=== PATIENT | male | born 1945 | race Caucasian/White ===

== ENCOUNTER → 2020-10-26 | Outpatient (CLI) | payer OTHER ==
[~2020-10-26] MED LIST: ATORVASTATIN CA20 MG PO; CYCL10 PO; DONEPEZIL HCL10 M1 PO; DONEPEZIL HCL10 MG PO; FAMO10; FUROSEMIDE20 MG PO; HYDROCODONE-AC1 EA11 PO; KLONOPIN0.5 M1 PO; LIDO700A20 TOP; ONDANSETRON ODT 4 MG; PREG25 PO; SIME80CH PO; Venlafaxine HCl75 MG PO; XARELTO20 M1 PO
[2020-10-26 14:49] LABS: BASOPHILS ABSOLUTE AUTO 0.02 K/mm3 (0.00-0.23); BASOPHILS PERCENT AUTO 0 % (0-2); EOSINOPHILS ABSOLUTE AUTO 0.14 K/mm3 (0.00-0.68); EOSINOPHILS PERCENT AUTO 2 % (0-6); Hematocrit 40.9 % (37.0-53.0); Hemoglobin 14.4 g/dL (13.5-17.5); IMMATURE GRAN ABSOLUTE AUTO 0.04 K/mm3 (0.00-0.10); IMMATURE GRAN PERCENT AUTO 1 % (0-1); LYMPHOCYTES ABSOLUTE AUTO 1.12 K/mm3 (0.84-5.20); LYMPHOCYTES PERCENT AUTO 17 % (21-46); MONOCYTES PERCENT AUTO 9 % (4-13); Mean Corpuscular HGB 30.6 pg (26.0-34.0); Mean Corpuscular HGB Conc 35.2 g/dL (31.5-36.5); Mean Corpuscular Volume 87 fL (80-100); Mean Platelet Volume 9.7 fL (9.1-12.4); NEUTROPHILS ABSOLUTE AUTO 4.72 K/mm3 (1.96-9.15); NEUTROPHILS PERCENT AUTO 71 % (41-73); Platelet Count 153 K/mm3 (150-400); RDW Coefficient Variation 13.2 % (11.7-14.2); White Blood Cell Count 6.64 K/mm3 (4.00-11.30)
[2020-10-26 15:09] LABS: Alanine Aminotransfer (ALT/SGP 24 U/L (12-78); Albumin, Blood 4.1 g/dL (3.4-5.0); Albumin/Globulin Ratio 1.4 (0.8-1.8); Alk Phos 319 U/L (40-126); Anion Gap 10 mmol/L (6-16); Aspartate Aminotrans (AST/SGOT 21 U/L (12-37); Blood Urea Nitrogen 14 mg/dL (8-24); Bun/Creatinine Ratio 15.9 (12.0-20.0); CO2, Blood 26 mmol/L (21-32); Calcium, Blood 9.2 mg/dL (8.5-10.1); Chloride, Blood 101 mmol/L (98-108); Creatinine, Blood 0.88 mg/dL (0.60-1.20); Glomerular Filtration Rate >60 (60-); Glucose, Blood 93 mg/dL (70-99); Potassium, Blood 3.9 mmol/L (3.5-5.5); Sodium, Blood 137 mmol/L (136-145); Total Protein, Blood 7.1 g/dL (6.4-8.2)
[2020-10-26 15:59] LABS: Bilirubin, Direct 0.1 mg/dL (0.0-0.3)
== END | disposition home or self-care (01) ==
LOC: LAB SHORT 14:45 → LAB EV 14:45
PROVIDERS: Physician Assistant Medical
DX: R11.2 Nausea with vomiting, unspecified (principal); R53.83 Other fatigue; R10.9 Unspecified abdominal pain; R74.8 Abnormal levels of other serum enzymes
CPT/HCPCS: 80053; 82248; 82977; 83690; 84443; 85025

== ENCOUNTER 2020-11-08 12:16 | Emergency (ER) | payer OTHER ==
[~2020-11-08] VITALS: Ht 175.3 cm; Wt 74.8 kg
[2020-11-08 13:02] LABS: BASOPHILS ABSOLUTE AUTO 0.06 K/mm3 (0.00-0.23); BASOPHILS PERCENT AUTO 1 % (0-2); EOSINOPHILS ABSOLUTE AUTO 0.03 K/mm3 (0.00-0.68); EOSINOPHILS PERCENT AUTO 0 % (0-6); Hematocrit 49.2 % (37.0-53.0); Hemoglobin 17.4 g/dL (13.5-17.5); IMMATURE GRAN ABSOLUTE AUTO 0.15 K/mm3 (0.00-0.10); IMMATURE GRAN PERCENT AUTO 2 % (0-1); LYMPHOCYTES ABSOLUTE AUTO 1.67 K/mm3 (0.84-5.20); LYMPHOCYTES PERCENT AUTO 21 % (21-46); MONOCYTES ABSOLUTE AUTO 0.76 K/mm3 (0.16-1.47); MONOCYTES PERCENT AUTO 10 % (4-13); Mean Corpuscular HGB 30.2 pg (26.0-34.0); Mean Corpuscular HGB Conc 35.4 g/dL (31.5-36.5); Mean Corpuscular Volume 85 fL (80-100); Mean Platelet Volume 9.5 fL (9.1-12.4); NEUTROPHILS ABSOLUTE AUTO 5.23 K/mm3 (1.96-9.15); NEUTROPHILS PERCENT AUTO 66 % (41-73); Platelet Count 157 K/mm3 (150-400); RDW Coefficient Variation 13.8 % (11.7-14.2); RDW Standard Deviation 41.9 fL (35.1-46.3); Red Blood Cell Count 5.77 M/mm3 (4.30-5.90)
[2020-11-08 13:17] LABS: International Normalized Ratio 1.14; Prothrombin Time Results 12.1 Sec (9.7-11.5)
[2020-11-08 13:18] LABS: Alanine Aminotransfer (ALT/SGP 23 U/L (12-78); Albumin, Blood 4.3 g/dL (3.4-5.0); Albumin/Globulin Ratio 1.1 (0.8-1.8); Alk Phos 518 U/L (50-136); Anion Gap 11 mmol/L (6-16); Aspartate Aminotrans (AST/SGOT 20 U/L (12-37); Bilirubin, Total 2.5 mg/dL (0.1-1.0); Blood Urea Nitrogen 10 mg/dL (8-24); CO2, Blood 24 mmol/L (21-32); Calcium, Blood 9.8 mg/dL (8.5-10.1); Chloride, Blood 105 mmol/L (98-108); Creatinine, Blood 0.72 mg/dL (0.60-1.20); Globulin, Blood 3.8 g/dL (2.2-4.0); Glomerular Filtration Rate >60 (60-); Glucose, Blood 106 mg/dL (70-99); Potassium, Blood 3.5 mmol/L (3.5-5.5); Sodium, Blood 140 mmol/L (136-145); Total Protein, Blood 8.1 g/dL (6.4-8.2)
[2020-11-08] MEDS ORDERED: DONEPEZIL HCL10 M1 PO (16:42)
[2020-11-08] MEDS ORDERED: ATORVASTATIN CA20 MG PO (16:42)
[2020-11-08] MEDS ORDERED: FAMO10 (16:43)
[2020-11-08] MEDS ORDERED: Venlafaxine HCl75 MG PO (16:43)
[2020-11-08] MEDS ORDERED: ONDANSETRON ODT 4 MG (16:43)
[2020-11-08] MEDS ORDERED: KLONOPIN0.5 M1 PO (16:43)
[2020-11-08] MEDS ORDERED: XARELTO20 M1 PO (16:43)
[2020-11-08] MEDS ORDERED: HYDROCODONE-AC1 EA11 PO (16:43)
[2020-11-08] MEDS ORDERED: FUROSEMIDE20 MG PO (16:43)
[2020-11-08] MEDS ORDERED: LIDO700A20 TOP (19:16)
== END 2020-11-08 19:38 | disposition home or self-care (01) ==
LOC: ER 12:16
PROVIDERS: Physician Assistant
DX: S70.01XA Contusion of right hip, initial encounter (principal); Z79.01 Long term (current) use of anticoagulants; Z79.899 Other long term (current) drug therapy; X58.XXXA Exposure to other specified factors, initial encounter
CPT/HCPCS: 36415; 73502; 74022; 80053; 84484; 85025; 85610; 85730; 93005; 93010; 96374; 96375; 96376; 99284-25; J2270; J2405

== ENCOUNTER 2020-11-22 12:05 | Emergency (ER) | payer OTHER ==
[~2020-11-22] VITALS: Ht 180.3 cm; Wt 104.3 kg
[~2020-11-22 12:05] MED LIST changes: -CYCL10 PO; -DONEPEZIL HCL10 MG PO; -PREG25 PO; -SIME80CH PO
[2020-11-22] MEDS ORDERED: CYCL10 PO (16:26)
== END 2020-11-22 16:33 | disposition home or self-care (01) ==
LOC: ER 12:05
DX: M25.551 Pain in right hip (principal); Z86.718 Personal history of other venous thrombosis and embolism
CPT/HCPCS: 73502; 99283-25; A9270

== ENCOUNTER → 2020-12-13 | Outpatient (CLI) | payer OTHER ==
[~2020-12-13] MED LIST changes: +CYCL10 PO; +DONEPEZIL HCL10 MG PO; +PREG25 PO; +SIME80CH PO
[2020-12-13 12:30] LABS: BASOPHILS ABSOLUTE AUTO 0.04 K/mm3 (0.00-0.23); BASOPHILS PERCENT AUTO 1 % (0-2); EOSINOPHILS ABSOLUTE AUTO 0.12 K/mm3 (0.00-0.68); EOSINOPHILS PERCENT AUTO 2 % (0-6); Hematocrit 38.3 % (37.0-53.0); Hemoglobin 13.2 g/dL (13.5-17.5); IMMATURE GRAN ABSOLUTE AUTO 0.19 K/mm3 (0.00-0.10); IMMATURE GRAN PERCENT AUTO 3 % (0-1); LYMPHOCYTES ABSOLUTE AUTO 1.25 K/mm3 (0.84-5.20); LYMPHOCYTES PERCENT AUTO 18 % (21-46); MONOCYTES ABSOLUTE AUTO 0.73 K/mm3 (0.16-1.47); MONOCYTES PERCENT AUTO 11 % (4-13); Mean Corpuscular HGB 29.3 pg (26.0-34.0); Mean Corpuscular HGB Conc 34.5 g/dL (31.5-36.5); Mean Corpuscular Volume 85 fL (80-100); NEUTROPHILS ABSOLUTE AUTO 4.65 K/mm3 (1.96-9.15); NEUTROPHILS PERCENT AUTO 67 % (41-73); RDW Coefficient Variation 14.1 % (11.7-14.2); RDW Standard Deviation 43.8 fL (35.1-46.3); White Blood Cell Count 6.98 K/mm3 (4.00-11.30)
[2020-12-13 12:35] LABS: Mean Platelet Volume 10.4 fL (9.1-12.4); Platelet Count 128 K/mm3 (150-400)
[2020-12-13 12:36] LABS: Albumin, Blood 3.7 g/dL (3.4-5.0); Albumin/Globulin Ratio 1.1 (0.8-1.8); Bilirubin, Total 1.1 mg/dL (0.1-1.0); Calcium, Blood 8.7 mg/dL (8.5-10.1); Creatinine, Blood 1.26 mg/dL (0.60-1.20); Globulin, Blood 3.3 g/dL (2.2-4.0); Potassium, Blood 4.2 mmol/L (3.5-5.5)
== END | disposition home or self-care (01) ==
LOC: LAB EV 12:23 → LAB SHORT 12:23
PROVIDERS: Physician Assistant
DX: F03.90 Unspecified dementia, unspecified severity, without behavioral disturbance, psychotic disturbance, mood disturbance, and anxiety (principal)
CPT/HCPCS: 80053; 85025

== ENCOUNTER 2020-12-20 12:38 | Emergency (ER) | payer OTHER ==
[~2020-12-20] VITALS: Ht 180.3 cm; Wt 98.0 kg
[~2020-12-20 12:38] MED LIST changes: -DONEPEZIL HCL10 MG PO; -PREG25 PO; -SIME80CH PO
[2020-12-20] MEDS ORDERED: SIME80CH PO (12:57)
[2020-12-20] MEDS ORDERED: PREG25 PO (12:58)
[2020-12-20] MEDS ORDERED: DONEPEZIL HCL10 MG PO (12:59)
[2020-12-20 13:30] LABS: Hematocrit 33.9 % (37.0-53.0); Hemoglobin 11.7 g/dL (13.5-17.5); Mean Corpuscular HGB 29.7 pg (26.0-34.0); Mean Corpuscular HGB Conc 34.5 g/dL (31.5-36.5); Mean Corpuscular Volume 86 fL (80-100); Mean Platelet Volume 10.3 fL (9.1-12.4); Platelet Count 96 K/mm3 (150-400); RDW Standard Deviation 43.8 fL (35.1-46.3); Red Blood Cell Count 3.94 M/mm3 (4.30-5.90); White Blood Cell Count 8.34 K/mm3 (4.00-11.30)
[2020-12-20 13:52] LABS: Alanine Aminotransfer (ALT/SGP 18 U/L (12-78); Albumin, Blood 2.9 g/dL (3.4-5.0); Albumin/Globulin Ratio 0.8 (0.8-1.8); Alk Phos 676 U/L (50-136); Anion Gap 4 mmol/L (6-16); Aspartate Aminotrans (AST/SGOT 47 U/L (12-37); Bilirubin, Total 0.8 mg/dL (0.1-1.0); Blood Urea Nitrogen 20 mg/dL (8-24); Bun/Creatinine Ratio 22.4 (12.0-20.0); CO2, Blood 23 mmol/L (21-32); Calcium, Blood 8.2 mg/dL (8.5-10.1); Chloride, Blood 107 mmol/L (98-108); Creatinine, Blood 0.89 mg/dL (0.60-1.20); Globulin, Blood 3.5 g/dL (2.2-4.0); Glomerular Filtration Rate >60 (60-); Glucose, Blood 110 mg/dL (70-99); Potassium, Blood 4.1 mmol/L (3.5-5.5); Sodium, Blood 134 mmol/L (136-145); Total Protein, Blood 6.4 g/dL (6.4-8.2); Troponin I 0.017 ng/mL (0.000-0.040)
[2020-12-20 13:58] LABS: BAND PERCENT MAN 3 % (0-8); BASOPHILS PERCENT MAN 0 % (0-2); EOSINOPHILS PERCENT MAN 0 % (0-6); LYMPHOCYTES PERCENT MAN 18 % (21-46); METAMYELOCYTE ABSOLUTE MAN 0.08 K/mm3 (0.00-0.00); METAMYELOCYTE PERCENT MAN 1 % (0-0); MONOCYTES ABSOLUTE MAN 0.75 K/mm3 (0.16-1.47); MONOCYTES PERCENT MAN 9 % (4-13); SEG NEUTROPHILS PERCENT MAN 69 % (41-73); TOTAL CELLS COUNTED 100
[2020-12-20 14:12] LABS: Source, Urine Voided
[2020-12-20 14:16] LABS: Appearance, Urine Clear (Clear); Bilirubin, Urine Neg (Neg); Blood, Urine 1+ (Neg); Color, Urine Yellow (P-Yellow); Glucose Qualitative, Urine Neg (Neg); Ketones, Urine Neg (Neg); Leukocyte Esterase, Urine 1+ (Neg); Nitrite, Urine Neg (Neg); Protein, Urine 1+ (Neg); Specific Gravity, Urine 1.015 (1.003-1.022); Urobilinogen, Urine NORM (Normal)
[2020-12-20 14:29] LABS: Bacteria Rare /hpf; Red Blood Cells, Urine 0-2 /hpf (0-2); Squamous Epithelial Cells Rare /hpf (Few); White Blood Cells, Urine 0-2 /hpf (0-5)
== END 2020-12-20 15:30 | disposition home or self-care (01) ==
LOC: ER 12:38
PROVIDERS: Emergency Medicine
DX: R53.1 Weakness (principal); I10 Essential (primary) hypertension; E78.5 Hyperlipidemia, unspecified; Z79.01 Long term (current) use of anticoagulants; Z79.899 Other long term (current) drug therapy
CPT/HCPCS: 36415; 70450; 80053; 81001; 84443; 84484; 85025; 87086; 93005; 93010; 99284-25; A9270

== ENCOUNTER 2020-12-28 20:34 | Observation (INO) | payer OTHER ==
[~2020-12-28] VITALS: Ht 182.9 cm; Wt 90.7 kg
[~2020-12-28 20:34] MED LIST changes: +DONEPEZIL HCL10 MG PO; +PREG25 PO; +SIME80CH PO
[2020-12-28 20:53] LABS: Base Excess Venous -11.5 mmol/L; Bicarbonate Venous 16.3 mmol/L (24.0-30.0); PCO2 Venous 26.1 mmHg (38-42); PO2 Venous 49.2 mmHg (38-42); pH Blood Venous 7.34 (7.34-7.37)
[2020-12-28 20:55] LABS: BASOPHILS ABSOLUTE AUTO 0.05 K/mm3 (0.00-0.23); BASOPHILS PERCENT AUTO 1 % (0-2); Hemoglobin 11.2 g/dL (13.5-17.5); LYMPHOCYTES ABSOLUTE AUTO 1.84 K/mm3 (0.84-5.20); LYMPHOCYTES PERCENT AUTO 22 % (21-46); MONOCYTES ABSOLUTE AUTO 0.36 K/mm3 (0.16-1.47); MONOCYTES PERCENT AUTO 4 % (4-13); Mean Corpuscular HGB 29.5 pg (26.0-34.0); Mean Corpuscular HGB Conc 33.9 g/dL (31.5-36.5); Mean Corpuscular Volume 87 fL (80-100); Mean Platelet Volume 10.3 fL (9.1-12.4); NRBC ABSOLUTE 0.24 K/mm3 (0.00-0.02); NRBC Auto 2.9 /100 WBC (0.0-0.2); Platelet Count 122 K/mm3 (150-400); RDW Coefficient Variation 14.7 % (11.7-14.2); RDW Standard Deviation 45.9 fL (35.1-46.3); White Blood Cell Count 8.37 K/mm3 (4.00-11.30)
[2020-12-28 20:55] LABS: Chloride (POC) 105 mmol/L (98-108); Glucose (ISTAT POC) 220 mg/dL (70-99); Hemoglobin (POC) 10.9 g/dL (13.5-17.5); Potassium (POC) 3.8 mmol/L (3.5-5.5); Sodium (POC) 136 mmol/L (135-148); Total CO2 (POC) 14 mmol/L (21-32)
[2020-12-28 20:56] LABS: EOSINOPHILS ABSOLUTE AUTO 0.05 K/mm3 (0.00-0.68); EOSINOPHILS PERCENT AUTO 1 % (0-6); IMMATURE GRAN ABSOLUTE AUTO 0.13 K/mm3 (0.00-0.10); IMMATURE GRAN PERCENT AUTO 2 % (0-1); NEUTROPHILS ABSOLUTE AUTO 5.94 K/mm3 (1.96-9.15); NEUTROPHILS PERCENT AUTO 71 % (41-73)
[2020-12-28 21:10] LABS: Alanine Aminotransfer (ALT/SGP 17 U/L (12-78); Albumin, Blood 2.8 g/dL (3.4-5.0); Albumin/Globulin Ratio 0.8 (0.8-1.8); Alk Phos 973 U/L (50-136); Anion Gap 15 mmol/L (6-16); Aspartate Aminotrans (AST/SGOT 48 U/L (12-37); Bilirubin, Total 1.8 mg/dL (0.1-1.0); Blood Urea Nitrogen 15 mg/dL (8-24); Bun/Creatinine Ratio 14.4 (12.0-20.0); CO2, Blood 15 mmol/L (21-32); Calcium, Blood 7.8 mg/dL (8.5-10.1); Chloride, Blood 105 mmol/L (98-108); Creatinine, Blood 1.04 mg/dL (0.60-1.20); Globulin, Blood 3.5 g/dL (2.2-4.0); Glomerular Filtration Rate >60 (60-); Glucose, Blood 222 mg/dL (70-99); Potassium, Blood 3.8 mmol/L (3.5-5.5); Sodium, Blood 135 mmol/L (136-145); Total Protein, Blood 6.3 g/dL (6.4-8.2)
[2020-12-28 21:21] LABS: BAND PERCENT MAN 27 % (0-8); BASOPHILS PERCENT MAN 0 % (0-2); EOSINOPHILS ABSOLUTE MAN 0.08 K/mm3 (0.00-0.68); EOSINOPHILS PERCENT MAN 1 % (0-6); LYMPHOCYTES % ATYPICAL MANUAL 1 % (0-0); LYMPHOCYTES ABSOLUTE MAN 2.42 K/mm3 (0.84-5.20); LYMPHOCYTES PERCENT MAN 28 % (21-46); METAMYELOCYTE ABSOLUTE MAN 0.25 K/mm3 (0.00-0.00); METAMYELOCYTE PERCENT MAN 3 % (0-0); MONOCYTES ABSOLUTE MAN 0.25 K/mm3 (0.16-1.47); MONOCYTES PERCENT MAN 3 % (4-13); MYELOCYTE ABSOLUTE MAN 0.25 K/mm3 (0.00-0.00); MYELOCYTE PERCENT MAN 3 % (0-0); SEG NEUTROPHILS PERCENT MAN 34 % (41-73); TOTAL CELLS COUNTED 100
[2020-12-28 23:04] LABS: Influenza A, PCR NEGATIVE (NEGATIVE); Influenza B, PCR NEGATIVE (NEGATIVE); Resp Syncytial Virus, PCR NEGATIVE (NEGATIVE); SARS-Cov-2 (COVID-19) PCR, MMC NEGATIVE (NEGATIVE)
--- NOTE | 2020-12-29 00:31 | NUR ---
Call back - Pt's ex-, her Joe, and son Conrad were present. Other family on zoom. Pt uncomfortable. Ex- discusses pt theological background and their confidence and catalino in [place]. All present take comfort in knowing pt will be in heaven soon. Family encourages pt to "let go" so he can be with [place]. Audible prayer offered and family joins in. Hospitality offered and family talks more about pt's life. Family grateful for support and encouragement. Visit ends.
--- NOTE | 2020-12-29 01:39 | NUR ---
75 YR OLD MALE WAS ADMITTED TO FLOOR FROM THE ED ON COMFORT CARE. ED RN REPORTED PT HAD FALLEN AND HAD HX OF SEVERE CONSTIPATION. LARGE STOOL IN COLON AND CT OF ABD REVEALED ACTIVE HEMMORHAGE WITH POSSIBLE UNDERLYING MALIGNANCY. IT WAS DISCUSSED WITH MD AND FAMILY THAT HE 'WOULDNT MAKE IT THROUGH SURGERY" AND SO HE WAS PLACED ON COMFORT CARE. SHE ALSO STATED HE PROBABLY WOULDNT SURVIVE BEING MOVED TO THE BED FROM THE [facility]. PT CAME UP FROM THE ED, TRANSFERRED TO THE BED, AND ALMOST IMMEDIATELY STOPPED BREATHING. HEART BEAT HEARD FAINT WITH AUSCULTATION. FAMILY AT BEDSIDE. AT 0125 FAMILY ASKED NURSE TO CHECK PT. 2 RNS CHECKED FOR HEART BEAT. NO HEART BEAT FOUND WITH DIGITAL CHECKS OF CAROTID, RADIAL. NO HEART RATE FOUND WITH AUSCULTATION BY MYSELF AND CHARGE NURSE DAMARIS MACE RN. CALL PLACED TO NOVELTY MAKER MD. PT PRONOUNCED AT 0125 AM. FAMILY LEFT SOON AFTER, FIRST ASKED TO HAVE PASTORAL CARE, THEN CHANGED THEIR MIND, AND WANTED TO LEAVE. WERE UNCERTAIN OF HOME FOR BURIAL/CREMATION CARE. AGREED TO HAVE HOSPITAL DISPATCH CHOOSE AND NOTIFY THEM. NURSING INSERT MOLDING OPERATOR TO CALL DISPATCH. SON LEFT HIS PHONE NUMBER WITH CHARGE NURSE FOR NOTIFICATION.
--- NOTE | 2020-12-29 02:38 | NUR ---
[facility] WHE[facility] OFFICE NOTIFIED. INFORMATION PROVIDED TO SERGEANT GEE RODRIGUEZ. OKAY'D TO RELEASE BODY TO HOME. [facility] THEN NOTIFIED. [facility] STATED THAT PT MAY BE A POTENTIAL DONOR. PAPERWORK INCLUDING H&P AND LABS TAKEN DURING VISIT FAXED TO [facility] LINE FOR CONSIDERATION. [facility]OR LINE STATED OKAY TO RELEASE BODY TO HOME THEY HAVE ACCESS THERE. FAMILY HAD NO PREFERENCE FOR HOME. [facility] USED. [facility] IN [place] CALLED, AWAITING CALL BACK FOR ETA. SONMONIKA CALLED AND NOTIFIED OF WHICH HOME PT IS BEING TAKEN TO. FAMILY AT BEDSIDE DURING PT'S PASSING. FAMILY SAID THEIR GOODBYES AND HEADED HOME. ICE PACK PLACED TO PT'S EYES.
--- NOTE | 2020-12-29 03:15 | NUR ---
DR MARTINEZ NOTIFIED AT 0310 OF PT EXPIRING AT 0125, ACKNOWLEDGED/AGREED TO 2 RNS PRONOUNCING. HOME [facility] AND DARIANA FELLOWS AT BEDSIDE TO TAKE BODY TO SAID HOME AT 0315. SUPERVISORY EXAMINER TO NOTIFY FAMILY OF HOME, ETC.
== END 2020-12-29 01:25 ==
LOC: ER 20:34 → MEDS 20:35
PROVIDERS: Emergency Medicine; ADMIT Internal Medicine
DX: A41.9 Sepsis, unspecified organism (principal); R65.21 Severe sepsis with septic shock; K63.1 Perforation of intestine (nontraumatic); G47.33 Obstructive sleep apnea (adult) (pediatric); E78.5 Hyperlipidemia, unspecified; R59.0 Localized enlarged lymph nodes; M84.451A Pathological fracture, right femur, initial encounter for fracture; K59.00 Constipation, unspecified; I49.1 Atrial premature depolarization; C79.51 Secondary malignant neoplasm of bone; Z86.718 Personal history of other venous thrombosis and embolism; Z20.822 Contact with and (suspected) exposure to COVID-19
CPT/HCPCS: 0241U; 36415; 74177; 80047; 80053; 82803; 83605; 85014; 85025; 86850; 86900; 86901; 86920; 87040; 93005; 93010; 96365-59; 96375; 96376; 99285-25; G0378; J0692; J1170; J1885; J2270; J2405; J7030; J7120; Q9967